=== PATIENT | female | born 1980 | race Caucasian/White ===

== ENCOUNTER 2019-08-14 07:31 | Inpatient (IN) | payer OTHER ==
[2019-08-08 15:40] VITALS: BMI 20.7
--- NOTE | 2019-08-13 10:08 | HP ---
Admitting History and Physical - Primary Care Physician PCP: Lance Lyon Y - Admission Chief Complaint: Family h/o breast cancer and PMS2 positive History of Present Illness: Patient is a 39 yo female who presents as a high risk for breast cancer patient secondary to family hx of breast cancer as well as personal hx of PMS2 positivity. Patients last mammo and US done 07/2019 were wnl. The MRI done 2018 was normal as well. Patient is now presenting for bilateral mastectomy with implant reconstruction. History Source: Patient - Past Medical History ...LMP Comment: hysterectomy Additional Past Medical History: None - Past Surgical History Past Surgical History: Yes: None - Smoking History Smoking history: Former smoker Have you smoked in the past 12 months: No If you are a former smoker, when did you quit?: 8 y ago - Alcohol/Substance Use Hx Alcohol Use: Yes (wine with dinner) Home Medications - Allergies Allergies/Adverse Reactions: Allergies Allergy/AdvReac Type Severity Reaction Status Date / Time No Known Allergies Allergy Verified 08/08/19 15:45 - Home Medications Home Medications: Ambulatory Orders Estradiol [Vivelle-Dot] 1 each TD DAILY 08/08/19 Family Medical History Family Hx Cancer: Mother (PMS2 pos), Sister (breast cancer and PMS2 pos) Other Family History: mat great aunt x 2 breast cancer. mat great GM breast cancer. pat GF gastric cancer. mat GF prostate cancer. pat aunt thyroid cancer at 60 Review of Systems - Review of Systems Constitutional: reports: No Symptoms Cardiovascular: reports: No Symptoms Respiratory: reports: No Symptoms Physical Examination Constitutional: Yes: Well Nourished, Calm Breast(s): Yes: Other (Patient has moderately ptotic A-cup breasts. No suspicious masses or adenopathy noted bilaterally.) Problem List - Problems (1) At high risk for breast cancer Code(s): Z91.89 - OTH PERSONAL RISK FACTORS, NOT ELSEWHERE CLASSIFIED Assessment/Plan Plan: bilateral mastectomy with implant reconstruction
[2019-08-14] MEDS ORDERED: ceFAZolin SODIUM 1 GM VIAL ONE ×2 (09:40→09:58)
[2019-08-14] MEDS ORDERED: BUPIVACAINE HCL 0.25% 125 MG/50 ML VIAL ONE (09:40)
[2019-08-14] MEDS ORDERED: GENTAMICIN SO4 80 MG/2 ML VIAL ONE (09:40)
[2019-08-14] MEDS ORDERED: BUPIVACAINE LIPOSOME/PF (EXPAREL) 266 MG/20 ML VIAL ONE (09:49)
[2019-08-14] MEDS ORDERED: PROPOFOL 20 ML ONE (09:58)
[2019-08-14] MEDS ORDERED: MIDAZOLAM HCL 2 MG/2 ML SINGLE DOSE VIAL ONE ×2 (09:58→11:19)
[2019-08-14] MEDS ORDERED: fentaNYL CITRATE 250 MCG/5 ML VIAL ONE ×2 (09:58→11:55)
[2019-08-14] MEDS ORDERED: ROCURONIUM BROMIDE 50 MG/5 ML SYRINGE ONE (10:25)
[2019-08-14] MEDS ORDERED: NEOSTIGMINE METHYLSULFATE 0.5 MG/ML - 10 ML MDV ONE (12:42)
[2019-08-14] MEDS ORDERED: GLYCOPYRROLATE 0.2 MG/1 ML VIAL ONE (12:42)
[2019-08-14] MEDS ORDERED: oxyCODONE HCL 5 MG TABLET PO PRN (12:55)
[2019-08-14] MEDS ORDERED: ZOLPIDEM TARTRATE 5 MG TABLET PO PRN (12:55)
[2019-08-14] MEDS ORDERED: DEXTROSE 5%-0.45% SALINE 1,000 ML IV SCH (13:00)
[2019-08-14] MEDS: ONDANSETRON 4 MG/2 ML VIAL IVPUSH PRN ×2 (13:55→18:02)
[2019-08-14] MEDS ORDERED: ONDANSETRON 4 MG/2 ML VIAL ONE (14:09)
--- NOTE | 2019-08-14 14:10 | OP ---
Operative Note - Note: Operative Date: 08/14/19 Pre-Operative Diagnosis: Genetic predisposition to breast cancer Operation: Bilateral mastectomy with reconstruction with dermal matrix and implants. Post-Operative Diagnosis: Same as Pre-op Surgeon: Aníbal Byrnes Senior Policy Analyst: Igor Ro Anesthesiologist/OFFICE MOVER: Fior Morin Anesthesia: General Specimens Removed: bilateral breast tissue Operative Report Dictated: Yes
--- NOTE | 2019-08-14 14:11 | SURG ---
Surgery Sponsorship Manager Note Sponsorship Manager: Igor Ro PA-C Date of Service: 08/14/19 Diagnosis: genetic predispositon to breast cancer Procedure: bilateral breast reconstruction following prophylactic mastectomy, with dermal matrix and implants I was present for the entirety of the operative procedure. For further detail, please refer to operative report. Visit type - Case Type Case Type: Scheduled - Emergency Emergency Visit: No - New patient This patient is new to me today: Yes Date on this admission: 08/14/19 - Critical Care Critical Care patient: No
[2019-08-14] MEDS: oxyCODONE HCL 5 MG TABLET PO PRN ×2 (15:59→20:37)
[2019-08-14] MEDS: CEFAZOLIN 1 GM/D5W 1 GRAM/50 ML BAG IVPB SCH ×2 (16:00→20:37)
[2019-08-14] MEDS: ACETAMINOPHEN 325 MG TABLET (FP) PO PRN (18:03)
--- NOTE | 2019-08-14 23:36 | OP ---
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 PROCEDURE: Bilateral total nipple sparing mastectomy inframammary approach with bilateral direct implant reconstruction with Cortiva. PRIMARY SURGEON: Kassidy Herrera MD HEALTH AND SAFETY MANAGER: MICHAEL Rock Primary surgeon for the direct implant reconstruction with Cortiva is Kassidy Byrnes MD, with his cutting table operator first, MICHAEL Kraus. COMPLICATIONS: There are no complications. ANESTHESIA: General endotracheal anesthesia. DESCRIPTION OF PROCEDURE: Briefly, the patient is a 39-year-old G2, P1 postmenopausal white female with Faroese/Japanese/Swazi/[place] Islander and Spanish descent. She has a strong family history with her identical twin who had triple negative breast cancer at age 39 who tested PMS2 positive. The patient has a maternal great grandmother with breast cancer at age 72 and maternal great aunts with breast cancer in their 60s. Her paternal father had gastric cancer at age 45 and maternal grandfather had prostate cancer at age 64. Both the patient and her mother also tested PMS2 positive. The patient decided to undergo prophylactic risk reduction mastectomies and had a recent negative mammography ultrasound and MRI. The patient is brought in for the procedure on August 14, 2019. In the holding area, site verification was made, and informed consent was obtained. She was marked preoperatively by the plastic surgeon. She is brought into the operating room and laid on the OR table in a supine position. Venodynes were placed on the lower extremities prior to reduction. She underwent general anesthesia. 2 g Ancef were given prior to incision, and both breasts were sterilely prepped and draped in the usual fashion. A timeout was performed. The left mastectomy was first performed through approximate 9-cm inframammary incision. The skin edges were reverted, and the breast was retracted inferiorly using [place] clamps. The skin flap was raised using the PEEK radiofrequency device superiorly to the level of the clavicle, medially to the level of the sternum, laterally to the level of the latissimus, and inferiorly to the level of the inframammary fold. The breast was taken out off the pectoralis major muscle inferior medial to superior lateral, completely removed intact. It was oriented with a long lateral, short superior suture, and weighed to allow for appropriate cosmetic result. Skin flaps were trimmed to remove all visible breast tissue. A retroareolar biopsy was taken underneath the left nipple areolar complex and sent for frozen section, came back negative so the left nipple was spared. Hemostasis was achieved, and the wound was copiously irrigated with warm, sterile saline. At this point, the right breast was approached, and again a symmetrical inframammary incision was made about 9 cm in inframammary fold of the right breast. The skin edges were everted and the breast was retracted inferiorly using Ferm[place] clamps. The skin flap was raised using the PEEK radiofrequency device superiorly to the level of the clavicle, medially to the level of the sternum, laterally to the level of the latissimus, and inferiorly to above the level of the inframammary fold. The breast was taken out off the pectoralis major muscle using electrocautery from inferior medial to superior lateral, completely removed intact. It was oriented with a long lateral, short superior suture, and weighed to allow for appropriate cosmetic result. Skin flaps were trimmed for good cosmetic result and to remove all visible breast tissue. The small amount of visible breast tissue left underneath the nipple areolar complex was trimmed and sent for frozen section, came back negative so the right nipple was spared. Hemostasis was achieved, and the wound was copiously irrigated with warm, sterile saline. At this point, Dr. Byrnes became the primary surgeon, and he performed bilateral subpectoral direct implant reconstruction with Cortiva. The Cortiva was sutured aspect of pectoralis major muscle to allow for the direct implant reconstruction. Two Vijay drains will be placed around each implant and brought to separate stab incisions on the lateral skin folds. Drains will be sutured in place using 3-0 nylon suture. All wounds will be closed separately by plastic surgery using interrupted 3-0 deep dermal PDS suture and a running 4-0 subcuticular PDS suture. We did use the SPY intraoperative skin perfusion device, which showed excellent blood flow in both skin flaps and nipples both before and after reconstruction. The patient will be recovered in the post anesthesia care unit postoperatively and then admitted postoperatively for pain and wound management. Exparel 60 mL was injected into the chest wall bilaterally for postoperative pain control by diluting 20 mL of Exparel with 20 mL of saline and 20 mL of 0.25% Marcaine. All sponge, needle counts were correct at the end of the case and estimated blood loss was about 125 mL. She was hemodynamically stable throughout. KASSIDY HERRERA M.D. [id number]
[2019-08-15] MEDS: CEFAZOLIN 1 GM/D5W 1 GRAM/50 ML BAG IVPB SCH ×4 (02:16→20:29)
[2019-08-15] MEDS: oxyCODONE HCL 5 MG TABLET PO PRN ×2 (02:42→12:17)
[2019-08-15] MEDS: ACETAMINOPHEN 325 MG TABLET (FP) PO PRN ×4 (06:53→20:29)
[2019-08-15 07:54] LABS: HEMATOCRIT 35.6 % (32.4-45.2); MCH 30.9 pg (25.7-33.7); MCHC 33.7 g/dl (32.0-36.0); MEAN CELL VOLUME 91.7 fl (80-96); MEAN PLT VOLUME 8.9 fl (7.5-11.1); PLATELET COUNT 232 K/MM3 (134-434); RBC 3.89 M/mm3 (3.60-5.2); RDW 13.3 % (11.6-15.6); WHITE BLOOD COUNT 12.4 K/mm3 (4.0-10.8)
[2019-08-15] MEDS: ONDANSETRON 4 MG/2 ML VIAL IVPUSH PRN (09:20)
--- NOTE | 2019-08-15 09:20 | PN ---
Progress Note (short form) - Note Progress Note: Plastic Surgery 39F s/p bilateral prophylactic mastectomy with breast reconstruction, POD 1. Pt states she is doing well only complaining of pain. Pt denies fever, chills, n/v, sob. Vital Signs Temp 98.4 F 08/15/19 05:00 Pulse 79 08/15/19 05:00 Resp 18 08/15/19 05:00 BP 105/54 L 08/15/19 05:00 Pulse Ox 97 08/15/19 05:00 Intake & Output 08/14/19 08/14/19 08/15/19 11:59 23:59 11:59 Intake Total 1600 400 380 Output Total 300 980 Balance 1600 100 -600 Weight 125 lb Intake: IV 1600 400 Oral 380 Output: Drainage 200 80 #1 20 20 #2 20 20 #3 30 20 #4 30 20 Urine 100 900 Void 100 900 Other: Voiding Method Toilet Toilet Height 5 ft 5 in Body Mass Index (BMI) 20.7 Weight Measurement Method Standing Scale CBC, BMP 08/15/19 07:34 PE: Gen: A&O x 3 Resp: breathing comfortably Breast: incisions clean no erythema or discharge drains in place with serosanguinous discharge, skin is pink and warm. Problem List - Problems (1) At high risk for breast cancer Assessment/Plan: Plan -pt appears to be doing well, continue monitor drain output -pain control -OOB/ambulate -continue bra Pt is cleared for discharge from plastic standpoint, should follow up with Dr. Byrnes as outpatient. Code(s): Z91.89 - OTH PERSONAL RISK FACTORS, NOT ELSEWHERE CLASSIFIED
[2019-08-15] MEDS ORDERED: ESTRADIOL TD SCH (10:00)
[2019-08-15] MEDS: diazePAM 5 MG TABLET PO PRN ×2 (10:28→20:29)
--- NOTE | 2019-08-15 12:40 | PN ---
Progress Note, Physician Chief Complaint: High Risk breast cancer S/P bilateral total nipple sparing mastectomies and reconstruction with dermal matrix and implant POD#1 History of Present Illness: patient C/O of tightness and will try the valium with tylenol , some mild nausea ,zofran ordered - Current Medication List Current Medications: Active Medications Acetaminophen (Tylenol -) 650 mg PO Q4H PRN PRN Reason: FEVER Last Admin: 08/15/19 12:18 Dose: 650 mg Diazepam (Valium -) 5 mg PO Q8H PRN PRN Reason: MUSCLE SPASMS Last Admin: 08/15/19 10:28 Dose: 5 mg Cefazolin Sodium (Ancef 1 Gm Premixed Ivpb -) 1 gram in 50 mls @ 100 mls/hr IVPB Q6H-IV TAMMI Stop: 08/21/19 14:59 Last Admin: 08/15/19 09:19 Dose: 100 mls/hr Dextrose/Sodium Chloride (D5-1/2ns -) 1,000 mls @ 100 mls/hr IV ASDIR TAMMI Last Admin: 08/14/19 13:25 Dose: 0 mls Non-Formulary Medication (Estradiol [Vivelle-Dot]) 1 each TD DAILY TAMMI Ondansetron HCl (Zofran Injection) 4 mg IVPUSH Q6H PRN PRN Reason: NAUSEA AND/OR VOMITING Last Admin: 08/15/19 09:20 Dose: 4 mg Oxycodone HCl (Roxicodone -) 5 mg PO Q4H PRN PRN Reason: PAIN LEVEL 1-5 Last Admin: 08/15/19 12:17 Dose: 5 mg Oxycodone HCl (Roxicodone -) 10 mg PO Q4H PRN PRN Reason: PAIN LEVEL 6-10 Zolpidem Tartrate (Ambien -) 5 mg PO HS PRN PRN Reason: Insomnia - Objective Vital Signs: Vital Signs Temperature 98.3 F 08/15/19 08:00 Pulse Rate 68 08/15/19 08:00 Respiratory Rate 16 08/15/19 08:00 Blood Pressure 111/52 L 08/15/19 08:00 O2 Sat by Pulse Oximetry (%) 99 08/15/19 08:00 Constitutional: Yes: No Distress Breast(s): Yes: Other (Bilateral flaps viable no Sgns or symtoms of infection, incision intact Frederic drains functioning well serosanguinous output. mild to moderate echymosis bilaterally left > right) Labs: CBC, BMP 08/15/19 07:34 Problem List - Problems (1) At high risk for breast cancer Code(s): Z91.89 - [facility] PERSONAL RISK FACTORS, NOT ELSEWHERE CLASSIFIED Assessment/Plan Iv antibiotics OOb with assistance valium/Tylenol/oxycodone prSCD Spirometry plan for discharge tomorrow
[2019-08-16] MEDS: oxyCODONE HCL 5 MG TABLET PO PRN (00:05)
[2019-08-16] MEDS: ACETAMINOPHEN 325 MG TABLET (FP) PO PRN ×3 (00:06→12:00)
[2019-08-16] MEDS: CEFAZOLIN 1 GM/D5W 1 GRAM/50 ML BAG IVPB SCH ×2 (02:46→09:15)
[2019-08-16] MEDS: diazePAM 5 MG TABLET PO PRN (05:41)
--- NOTE | 2019-08-16 13:14 | DS ---
Physical Examination Vital Signs: Vital Signs Temperature 98.6 F 08/16/19 08:23 Pulse Rate 66 08/16/19 08:23 Respiratory Rate 16 08/16/19 08:23 Blood Pressure 108/63 08/16/19 08:23 O2 Sat by Pulse Oximetry (%) 99 08/16/19 08:23 Constitutional: Yes: Well Nourished Wound/Incision: Yes: Clean/Dry, Well Approximated (Flaps are viable, no signs of infection.) Labs: CBC, BMP 08/15/19 07:34 Discharge Summary Problems reviewed: Yes Reason For Visit: GENETIC SUSCEPTIBILITY Condition: Good - Instructions Diet, Activity, Other Instructions: Post Operative Instructions - [facility] We hope your recovery will be uneventful. For those of you who have been given general anesthesia, there is a possibility you might have some lightheadedness and possibly nausea. It is important that each patient, especially those who have had general anesthesia, follow these instructions, please: 1. Do NOT operate a motor vehicle for 24 hours. 2. Do NOT drink any alcoholic beverages for 24 hours. 3. Do NOT take any sedatives, narcotics, or tranquilizers for 24 hours unless specifically ordered by your surgeon. 4. Do NOT undertake any strenuous exercise or outside activity for 24 hours unless specifically permitted by your surgeon. 5. Eat light foods that are easy to digest. If you have any problems with nausea and vomiting, lie down and rest. If it continues, call your surgeon. 6. Call your surgeon AT ONCE if you have problems with: a. Bleeding b. Urinating c. Excessive pain or drainage d. Numbness If any problems occur, call your physician first. If you cannot reach him/her, call the Ambulatory Surgery Unit at [phone], or the Emergency Room at [phone]. Follow up with Drs. Lyon / Jonathan in 7 days. Medication: Vicodin E-S OR Percocet 1-2 tablets every 4-6 hrs as needed for 5-7 days. Wound Care: Keep wound dry and clean for 48 hours. You may remove the dressing after 48 hours and may shower. Keep steri-strips in place until follow-up appointment No heavy lifting or strenuous activities. BREAST SURGERY INSTRUCTIONS Jackson Lyon M.D., CATARINO Lyon M.D., FACS Dianne Castillo M.D., FACS 1. Please call the office at to make a follow up appointment with your surgeon. This number can be also used for any urgent issues you may have. 2. Call us immediately if any of the following occur: *Bleeding from the incision or drain site (a small amount is normal) *Fever or chills *Redness and worsening tenderness around the surgical site *Drainage of pus or fluid from the incision or drain site 3. You may change the surgical dressing two (2) days after your surgery, and may shower then. If you have drains, you may shower after they have been removed, until then take a sponge bath. 4. It is normal for there to be some bruising and tenderness around the surgical site, and the breast may also be firm in this area. 5. Your surgeon used 3M DuraPrep Surgical Solution, a bacteria-killing skin preparation. It is recommended that this film remain on the skin after the procedure. The film will gradually wear away. If, however, early removal is desired: 1. Apply 8610 or 8611 3M Remover solution to the prepped area, keeping away from the wound edge or puncture site. Wipe off with a disposable towel. OR 2. Soak gauze with 70% Isopropyl alcohol and place on the prepped area for at least 40 seconds. Lightly scrub to remove the solution. 6. Please wear a comfortable bra (sports or surgical bra) all day and all night until your first follow-up visit with your surgeon. 7. The pain medicine you have been prescribed may make you constipated; make sure you drink plenty of water. You may use an over the counter laxative if needed. 8. You may resume your normal diet after surgery, although you may want to avoid rich foods for the first twenty-four (24) hours after surgery. Alcoholic drinks should be avoided while taking the prescribed pain medicine. 9. You may resume normal activities as long as there is no discomfort, but do not do upper body exercises until after your follow-up appointment. Do not lift anything heavier than a large phone book. You may resume driving once you have stopped taking the prescribed pain medicine and feel comfortable doing arm movements.WEAR BRA, No shower,record and empty ELLE output twice daily Referrals: Lance Lyon MD [Staff Physician] - Aníbal Byrnes MD [Staff Physician] - Disposition: HOME - Home Medications Comprehensive Discharge Medication List: Ambulatory Orders Estradiol [Vivelle-Dot] 1 each TD DAILY 08/08/19 Cefadroxil 500 mg PO BID #20 capsule 08/15/19 Diazepam [Valium] 5 mg PO BID #10 tablet MDD 2 08/15/19 Oxycodone HCl/Acetaminophen [Percocet 5-325 mg Tablet] 1 - 2 tab PO Q6H PRN #30 tab MDD 6 08/15/19
[2019-08-16 13:18] VITALS: BP 105/77; PULSE 68; TEMP 98.3
--- NOTE | 2019-08-18 12:01 | OP ---
DATE OF OPERATION: 08/14/2019 SURGEON: Kassidy Byrnes MD SUPERVISOR PREPRESS SURGEON: MICHAEL Negrete PREOPERATIVE DIAGNOSIS: Bilateral acquired chest wall deformity status post bilateral mastectomy with Dr. Kassidy Lyon MD. PROCEDURE: 1. Right immediate breast reconstruction utilizing immediate insertion of silicone breast implant and Cortiva reconstruction. 2. Left immediate breast reconstruction utilizing immediate insertion of silicone breast implant and Cortiva reconstruction. 3. Intravenous injection of indocyanine green dye and intraoperative diagnostic evaluation of non-coronary intraoperative fluorescein vascular angiography x 2. SURGEON: Dr. Clement Byrnes ANESTHESIA: General. OPERATIVE PROCEDURE IN DETAIL: The patient was taken to the operating room. After induction of general anesthesia in the supine position, both arms were extended and padded. Venodyne boots were placed. The entire chest wall was painted with ChloraPrep solution over its entire extent, and sterile drapes were placed in the usual fashion. The markings, which had been made in the standing position preoperatively, were reoutlined with the patient's knowledge. Time-out procedure was performed. Attention was turned by Dr. Lyon to the mastectomies. Bilateral inframammary incisions were made and Dr. Lyon performed mastectomies. This will be dictated under separate cover. Upon completion of the mastectomies, the wounds were copiously irrigated and attention was turned to the right breast. A subpectoral dissection was begun on the right breast, superiorly from the second rib, medially to the sternal fibers, and down to the inframammary fold, elevating the pectoralis major muscle from its insertion. At this point, she had Cortiva large dermal sheets brought into the field and sutured superiorly along the pectoralis major muscle after rehydration. This was carried along the lateral mammary fold and down the side of the breast reconstruction. At this point, a Sientra style 107/505-mL implant was chosen. The left breast tissue removed was 252 g, and the right breast approximately 267 g. This implant was placed and then sutured with 3-0 Vicryl suture continued along the inframammary fold, completely covering the implant itself. The exact same procedure was carried out symmetrically on the opposite breast, also placing a Sientra style 107/505-mL implant in the same subpectoral pocket. Good symmetry was seen in the sitting position. After the implants were in place, the patient was injected with 10 mL of Isocyanide green dye and the Spy imaging system was brought into the field. The skin flowed to the right and left breasts and the nipple areolar complex, and the entire skin flaps were evaluated and seen to be viable with good blood flow. Two Vijay drains were brought out through separate stab wounds laterally. The Smart Infuser pump catheter was inserted medially and into the subpectoral position. Both wounds were closed symmetrically using 3-0 PDS suture on the deep tissue, 3-0 in a deep dermal fashion, and 4-0 in a subcuticular fashion. Both wounds were dressed sterilely with Mastisol and Steri-Strips with a surgical bra and a compression strap. The patient tolerated the procedure well. She was awakened, extubated and transferred to the recovery room in satisfactory condition. The physical therapy assistant was present during the entire portion of the operation and closure. KASSIDY BYRNES M.D. [id number]
--- NOTE | 2019-08-19 13:24 | PATH ---
Surgical Pathology Report Patient Name: ALESSIA MITCHELL Med. Rec. #: [id number] /Age/Gender: 1980 (Age: 39) / F Account: [id number] Location: [facility] MED-SURG Taken: 08/14/2019 Received: 08/14/2019 Reported: 08/19/2019 Physicians: Lance Lyon M.D. Specimen(s) Received A: RIGHT BREAST RETROAREOLAR BIOPSY (FS) B: LEFT BREAST RETROAREOLAR BIOPSY (FS) C: RIGHT BREAST MASTECTOMY D: LEFT BREAST MASTECTOMY Clinical History PMS2+ genetic mutation Intraoperative Consult Diagnosis A. Right breast retroareolar biopsy, frozen section: Benign breast parenchyma. B. Left breast retroareolar biopsy, frozen section: Benign breast parenchyma. Shruthi Medina M.D., 08/14/2019 Final Diagnosis A. RETROAREOLA, RIGHT, BIOPSY (FS): BENIGN BREAST TISSUE; NEGATIVE FOR MALIGNANCY. B. RETROAREOLA, LEFT, BIOPSY (FS): BENIGN BREAST TISSUE; NEGATIVE FOR MALIGNANCY. C. 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 D. BREAST, LEFT, NIPPLE-SPARING, MASTECTOMY: BENIGN BREAST TISSUE SHOWING FIBROCYSTIC CHANGES INCLUDING CYSTIC APOCRINE METAPLASIA, USUAL DUCTAL HYPERPLASIA (UDH), COLUMNAR CELL CHANGE AND FIBROADENOMA. Electronically Signed Jessica Colorado M.D. Gross Description A. Received fresh labeled "right breast retroareolar biopsy," is a 1.5 x 0.2 x 0.3 cm portion of fibroadipose tissue. The specimen is submitted for frozen section. The frozen section residue is entirely submitted in one cassette. B. Received fresh labeled "left breast retroareolar biopsy," is a 1.7 x 1.0 x 0.5 cm portion of fibroadipose tissue. The specimen is submitted in toto for frozen section. The frozen section residue is entirely submitted in one cassette. C. Received in formalin, labeled "right breast mastectomy," is a 260 gram, 12.5 x 12.0 x 3.5 cm. right mastectomy specimen with a short suture marking the superior aspect and a long suture marking the lateral aspect of the specimen, per the surgeon. There is no skin or nipple present. The deep margin is inked black and the anterior soft tissue margin is inked blue. The specimen is serially sectioned from lateral to medial. Sectioning reveals abundant dense, white, focally firm fibrous tissue. Alteration Hand sections are submitted in 14 cassettes as follows: 1-3-upper outer quadrant; 4-6-lower outer quadrant; 7-9-upper inner quadrant; 10-12-lower inner quadrant; 13-anterior soft tissue margin; 14-deep margin. Time to formalin fixation: 35 minutes Total formalin fixation time: Approximately 29 hours. D. Received in formalin, labeled "left breast mastectomy," is a 262 gram, 14.0 x 12.0 x 2.8 cm. left mastectomy specimen with a short suture marking the superior aspect and a long suture marking the lateral aspect of the specimen, per the surgeon. There is no skin or nipple present. The deep margin is inked black and the anterior soft tissue margin is inked blue. The specimen is serially sectioned from medial to lateral. Sectioning reveals abundant dense, white, focally firm fibrous tissue. Alteration Hand sections are submitted in 14 cassettes as follows: 1-3-upper outer quadrant; 4-6-lower outer quadrant; 7-9-upper inner quadrant; 10-12-lower inner quadrant; 13-anterior soft tissue margin; 14-deep margin. Time to formalin fixation: 10 minutes Total formalin fixation time: Approximately 29 hours. 08/15/2019 [facility]08/15/2019
== END 2019-08-16 13:18 | disposition home or self-care (01) | DRG 585 ==
LOC: FM/S 07:31
PROVIDERS: ADMIT Plastic Surgery; ATTEND Surgery Surgical Oncology
PROC: 4A1GXSH Monitoring of Skin and Breast Vascular Perfusion using Indocyanine Green Dye, External Approach (ICD-10-PCS; 2019-08-14)
PROC: 0HTV0ZZ Resection of Bilateral Breast, Open Approach (ICD-10-PCS; principal; 2019-08-14 10:52)
PROC: 0HRV0JZ Replacement of Bilateral Breast with Synthetic Substitute, Open Approach (ICD-10-PCS; 2019-08-14 10:52)
DX: Z40.01 Encounter for prophylactic removal of breast (principal); Z87.891 Personal history of nicotine dependence; Z91.89 Other specified personal risk factors, not elsewhere classified; M95.4 Acquired deformity of chest and rib; Z80.3 Family history of malignant neoplasm of breast
CPT/HCPCS: 36415; 84703; 85027; 88307-TC; 88331-TC; 94760